=== PATIENT | female | born 1980 | race Caucasian/White ===

== ENCOUNTER 2025-01-11 19:40 | Observation (INO) | payer BC ==
[2025-01-11] MEDS: ASPIRIN 81 MG PO STA (20:14)
[2025-01-11] MEDS: LORazepam 2 MG/ML INJ IV STA (20:14)
[2025-01-11] MEDS: NITROGLYCERIN OINT 1 INCH/GM PACKET TOPICAL STA (20:14)
--- NOTE | 2025-01-11 20:22 | ED ---
General Adult HPI - General Source: patient, RN notes reviewed, old records reviewed Mode of arrival: ambulatory Limitations: no limitations <Angel Fabian - Last Filed: 01/11/25 20:53> <Francisco Amezquita - Last Filed: 01/11/25 22:18> - General Chief complaint: Chest Pain Stated complaint: Hypertension, chest tightness Time Seen by Provider: 01/11/25 19:50 - History of Present Illness Initial comments: This is a 44-year-old female who presents to the emergency department stating that her blood pressure has been elevated and she is experiencing some chest tightness/heaviness that is atypical for her. Patient denies any shortness of breath or difficulty breathing. Patient denies any radiation of the pain. Denies any diaphoretic episode. Patient states she does have some anxiety and this can contribute to her fast heart rate currently. Patient denies any high cholesterol patient denies smoking patient denies any diabetes. Patient denies family history of heart disease. (Angel Fabian) - Related Data Allergies Allergy/AdvReac Type Severity Reaction Status Date / Time No Known Allergies Allergy Verified 01/11/25 19:43 Review of Systems ROS Other: All systems not noted in ROS Statement are negative. <Angel Fabian - Last Filed: 01/11/25 20:53> ROS Other: All systems not noted in ROS Statement are negative. <Francisco Amezquita - Last Filed: 01/11/25 22:18> ROS Statement: Those systems with pertinent positive or pertinent negative responses have been documented in the HPI. Past Medical History Past Medical History: Hypertension History of Any Multi-Drug Resistant Organisms: None Reported Past Surgical History: Section Past Psychological History: Anxiety Smoking Status: Never smoker Past Alcohol Use History: None Reported Past Drug Use History: None Reported <Angel Fabian - Last Filed: 01/11/25 20:53> General Exam Limitations: no limitations <Angel Fabian - Last Filed: 01/11/25 20:53> - General Exam Comments Initial Comments: GENERAL: Patient is well-developed and well-nourished. Patient is nontoxic and well- hydrated and is in mild distress. ENT: Neck is soft and supple. No significant lymphadenopathy is noted. Oropharynx is clear. Moist mucous membranes. Neck has full range of motion without eliciting any pain. EYES: The sclera were anicteric and conjunctiva were pink and moist. Extraocular movements were intact and pupils were equal round and reactive to light. Eyelids were unremarkable. PULMONARY: Unlabored respirations. Good breath sounds bilaterally. No audible rales rhonchi or wheezing was noted. CARDIOVASCULAR: There is a regular rate and rhythm without any murmurs gallops or rubs. ABDOMEN: Soft and nontender with normal bowel sounds. SKIN: Skin is clear with no lesions or rashes and otherwise unremarkable. NEUROLOGIC: Patient is alert and oriented x3. Cranial nerves II through XII are grossly in tact. Motor and sensory are also intact. Normal speech, volume and content. Symmetrical smile. MUSCULOSKELETAL: Normal extremities with adequate strength and full range of motion. LYMPHATICS: No significant lymphadenopathy is noted PSYCHIATRIC: Normal psychiatric evaluation. (Angel Fabian) Course Vital Signs 01/11/25 01/11/25 01/11/25 19:41 19:57 21:39 Temperature 97.7 F Pulse Rate 117 H 107 H 98 Respiratory 20 17 18 Rate Blood Pressure 196/118 168/98 147/86 O2 Sat by Pulse 99 100 98 Oximetry Medical Decision Making - Lab Data Result diagrams: 01/11/25 20:00 01/11/25 20:00 <Angel Fabian - Last Filed: 01/11/25 20:53> - Lab Data Result diagrams: 01/11/25 20:00 01/11/25 20:00 <Francisco Amezquita - Last Filed: 01/11/25 22:18> - Medical Decision Making EKG is interpreted by myself. EKG shows sinus tachycardia at 160 bpm [place] was 159 QRS is 80 QT interval is 290 QTc is 352. Patient has ST segment depression in precordial leads and inferior leads. Was pt. sent in by a medical professional or institution (, PA, WRAPPING MACHINE TENDER, urgent care, hospital, or assisted...) When possible be specific @ -[No] Did you speak to anyone other than the patient for history (EMS, parent, family, police, friend...)? What history was obtained from this source @ -[No] Did you review nursing and triage notes (agree or disagree)? Why? @ -[I reviewed and agree with nursing and triage notes] Were old charts reviewed (outside hosp., previous admission, EMS record, old EKG, old radiological studies, urgent care reports/EKG's, assisted records)? Report findings @ -[No old charts were reviewed] Differential Diagnosis? @ -Differential Chest Pain: Stable Angina, Unstable Angina, STEMI, NSTEMI Aortic Dissection, Pneumothorax, Musculoskeletal, Esophageal Spasm GERD, Cholecystitis, Pancreatitis, Zoster, this is not meant to be an all-inclusive list. EKG interpreted by me (3pts min.). @ -[As above] X-rays interpreted by me (1pt min.). @ -[None done] CT interpreted by me (1pt min.). @ -[None done] U/S interpreted by me (1pt. min.). @ -[None done] What testing was considered but not performed or refused? (CT, X-rays, U/S, labs)? Why? @ -[None] What meds were considered but not given or refused? Why? @ -[None] Did you discuss the management of the patient with other professionals (professionals i.e. , PA, WRAPPING MACHINE TENDER, lab, RT, psych nurse, social media marketer, veterans' counselor, teacher, chairman and chief executive officer, caseworker intake)? Give summary @ -[No] Was smoking cessation discussed for >3mins.? @ -[No] Was critical care preformed (if so, how long)? @ -[No] Were there social determinants of health that impacted care today? How? (Homelessness, low income, unemployed, alcoholism, drug addiction, transportation, low edu. Level, literacy, decrease access to med. care, fpc, rehab)? @ -[No] Was there de-escalation of care discussed even if they declined (Discuss DNR or withdrawal of care, Hospice)? DNR status @ -[No] What co-morbidities impacted this encounter? (DM, HTN, Smoking, COPD, CAD, Cancer, CVA, ARF, Chemo, Hep., AIDS, mental health diagnosis, sleep apnea, morbid obesity)? @ -[None] Was patient admitted / discharged? Hospital course, mention meds given and route, prescriptions, significant lab abnormalities, going to OR and other pertinent info. @ -Dr. Amezquita with taking over the care of this patient at 9 PM (Angel Fabian) CT angiography negative for pulmonary embolism. This was ordered secondary to minimally elevated D-dimer. Patient care was signed out at shift change awaiting this test. Patient's potassium is replaced in the emergency department she is placed in observation for serial cardiac enzymes telemetry, cardiology consultation. Case discussed with Dr. Al ([facility],Francisco Wilson) - Lab Data Lab Results 01/11/25 01/11/25 01/11/25 Range/Units 20:00 20:00 20:00 WBC 12.9 H (3.8-10.6) k/uL RBC 4.65 (3.80-5.40) m/uL Hgb 13.6 (11.4-16.0) gm/dL Hct 41.1 (34.0-46.0) % MCV 88.4 (80.0-100.0) fL MCH 29.3 (25.0-35.0) pg MCHC 33.1 (31.0-37.0) g/dL RDW 13.6 (11.5-15.5) % Plt Count 366 (150-450) k/uL MPV 7.8 Neutrophils % 87 % Lymphocytes % 9 % Monocytes % 3 % Eosinophils % 0 % Basophils % 0 % Neutrophils # 11.2 H (1.3-7.7) k/uL Lymphocytes # 1.2 (1.0-4.8) k/uL Monocytes # 0.4 (0-1.0) k/uL Eosinophils # 0.0 (0-0.7) k/uL Basophils # 0.0 (0-0.2) k/uL PT 10.7 (10.0-12.5) sec INR 1.0 (<1.2) APTT 23.4 (22.0-30.0) sec D-Dimer 0.69 H (<0.60) mg/L FEU Sodium 134 L (137-145) mmol/L Potassium 3.0 L (3.5-5.1) mmol/L Chloride 96 L (98-107) mmol/L Carbon Dioxide 25 (22-30) mmol/L Anion Gap 13 mmol/L BUN 10 (7-17) mg/dL Creatinine 0.66 (0.52-1.04) mg/dL Est GFR (CKD-EPI)AfAm >90 (>60 ml/min/1.73 sqM) Est GFR (CKD-EPI)NonAf >90 (>60 ml/min/1.73 sqM) Glucose 146 H (74-99) mg/dL Calcium 9.8 (8.4-10.2) mg/dL Magnesium 1.8 (1.6-2.3) mg/dL Total Bilirubin 0.6 (0.2-1.3) mg/dL AST 19 (14-36) U/L ALT 24 (4-34) U/L Alkaline Phosphatase 96 (38-126) U/L Troponin I (0.000-0.034) ng/mL Total Protein 7.5 (6.3-8.2) g/dL Albumin 4.6 (3.5-5.0) g/dL /02/01 Range/Units 20:00 WBC (3.8-10.6) k/uL RBC (3.80-5.40) m/uL Hgb (11.4-16.0) gm/dL Hct (34.0-46.0) % MCV (80.0-100.0) fL MCH (25.0-35.0) pg MCHC (31.0-37.0) g/dL RDW (11.5-15.5) % Plt Count (150-450) k/uL MPV Neutrophils % % Lymphocytes % % Monocytes % % Eosinophils % % Basophils % % Neutrophils # (1.3-7.7) k/uL Lymphocytes # (1.0-4.8) k/uL Monocytes # (0-1.0) k/uL Eosinophils # (0-0.7) k/uL Basophils # (0-0.2) k/uL PT (10.0-12.5) sec INR (<1.2) APTT (22.0-30.0) sec D-Dimer (<0.60) mg/L FEU Sodium (137-145) mmol/L Potassium (3.5-5.1) mmol/L Chloride (98-107) mmol/L Carbon Dioxide (22-30) mmol/L Anion Gap mmol/L BUN (7-17) mg/dL Creatinine (0.52-1.04) mg/dL Est GFR (CKD-EPI)AfAm (>60 ml/min/1.73 sqM) Est GFR (CKD-EPI)NonAf (>60 ml/min/1.73 sqM) Glucose (74-99) mg/dL Calcium (8.4-10.2) mg/dL Magnesium (1.6-2.3) mg/dL Total Bilirubin (0.2-1.3) mg/dL AST (14-36) U/L ALT (4-34) U/L Alkaline Phosphatase (38-126) U/L Troponin I <0.012 (0.000-0.034) ng/mL Total Protein (6.3-8.2) g/dL Albumin (3.5-5.0) g/dL Disposition <Angel Fabian - Last Filed: 01/11/25 20:53> Is patient prescribed a controlled substance at d/c from ED?: No Time of Disposition: 22:18 <Francisco Amezquita - Last Filed: 01/11/25 22:18> Clinical Impression: Chest pain Disposition: ADMITTED IP TO THIS HOSP Condition: Stable Referrals: Marco A Diaz DO [Primary Care Provider] - 1-2 days
[2025-01-11 20:42] LABS: ALT 24 U/L (4-34); AST 19 U/L (14-36); African American GFR (CKD) >90 (>60 ml/min/1.73 sqM); Albumin 4.6 g/dL (3.5-5.0); Alkaline Phosphatase 96 U/L (38-126); Anion Gap 13 mmol/L; Blood Urea Nitrogen 10 mg/dL (7-17); Calcium 9.8 mg/dL (8.4-10.2); Carbon Dioxide 25 mmol/L (22-30); Chloride 96 mmol/L (98-107); Glucose 146 mg/dL (74-99); Magnesium 1.8 mg/dL (1.6-2.3); Non-African American GFR(CKD) >90 (>60 ml/min/1.73 sqM); Sodium 134 mmol/L (137-145); Total Bilirubin 0.6 mg/dL (0.2-1.3); Total Protein 7.5 g/dL (6.3-8.2)
[2025-01-11 20:46] LABS: Basophils % (A) 0 %; Eosinophils % (A) 0 %; HCT 41.1 % (34.0-46.0); HGB 13.6 gm/dL (11.4-16.0); Lymphocytes # (A) 1.2 k/uL (1.0-4.8); Lymphocytes % (A) 9 %; MCH 29.3 pg (25.0-35.0); MCHC 33.1 g/dL (31.0-37.0); MCV 88.4 fL (80.0-100.0); Mean Platelet Volume 7.8; Monocytes # (A) 0.4 k/uL (0-1.0); Monocytes % (A) 3 %; Neutrophils # (A) 11.2 k/uL (1.3-7.7); Neutrophils % (A) 87 %; Platelet Count 366 k/uL (150-450); RBC 4.65 m/uL (3.80-5.40); RDW 13.6 % (11.5-15.5); WBC 12.9 k/uL (3.8-10.6)
[2025-01-11 20:53] LABS: Partial Thromboplastin Time 23.4 sec (22.0-30.0); Prothrombin Time 10.7 sec (10.0-12.5)
--- NOTE | 2025-01-11 21:00 | XR ---
EXAMINATION TYPE: XR chest 2V DATE OF EXAM: 01/11/2025 8:39 PM COMPARISON: None. CLINICAL INDICATION: Female, 44 years old with history of Chest Pain, TECHNIQUE: XR chest 2V view(s) obtained. FINDINGS: The heart size is normal. The pulmonary vasculature is normal. The lungs are clear. IMPRESSION: 1. No acute pulmonary process. [facility], , 01/11/2025 8:58 PM
[2025-01-11] MEDS: POTASSIUM BICARBONATE/CIT AC 20 MEQ TABLET.EFF PO ONE (21:36)
--- NOTE | 2025-01-11 21:45 | CT ---
EXAMINATION TYPE: CT chest angio for PE DATE OF EXAM: 01/11/2025 9:22 PM COMPARISON: None. CLINICAL INDICATION: Female, 44 years old with history of cp, d-dimer, Positive dimer, chest tightnes s since this morning, TECHNIQUE: CT of the chest is performed on a spiral scan at 2 mm thick sections. Study is performed with intravenous contrast timed for evaluation for pulmonary embolism. This will limit additional po rtions of the evaluation. 10mm MIP images reconstructed by the technologist are reviewed on the comp uter in the coronal and sagittal planes. Contrast used:54 cc mL of Isovue 370 with IV Contrast, (none if empty) Oral contrast used: (none if empty) CT DLP: 280 mGycm, Automated exposure control for dose reduction was used. FINDINGS: No persistent filling defects are evident to suggest an acute pulmonary embolism. No mediastinal or hilar adenopathy enlarged by CT criteria is evident. The ascending aorta diameter at the level of the main pulmonary artery is 3.4 cm. The main pulmonary artery diameter at the bifurcation is 2.2 cm. Lung windows are clear. No significant coronary artery calcifications. Limited CT sections were through the upper abdomen. Upper abdomen appears unremarkable. Small hiata l hernia may be present. IMPRESSION: 1. No acute pulmonary embolism. 2. No acute pulmonary process. [facility], , 01/11/2025 9:43 PM
[2025-01-11] MEDS ORDERED: ACETAMINOPHEN TAB 325 MG TAB PO PRN (22:16)
[2025-01-11] MEDS ORDERED: NALOXONE 0.4 MG/ML 1 ML VIAL IV PRN (22:16)
[2025-01-12 03:41] LABS: ALT 20 U/L (4-34); AST 16 U/L (14-36); African American GFR (CKD) >90 (>60 ml/min/1.73 sqM); Albumin 3.8 g/dL (3.5-5.0); Alkaline Phosphatase 74 U/L (38-126); Anion Gap 9 mmol/L; Blood Urea Nitrogen 10 mg/dL (7-17); Calcium 9.3 mg/dL (8.4-10.2); Carbon Dioxide 30 mmol/L (22-30); Chloride 96 mmol/L (98-107); Glucose 89 mg/dL (74-99); Non-African American GFR(CKD) >90 (>60 ml/min/1.73 sqM); Potassium 3.1 mmol/L (3.5-5.1); Sodium 135 mmol/L (137-145); Total Bilirubin 0.6 mg/dL (0.2-1.3); Total Protein 6.3 g/dL (6.3-8.2)
[2025-01-12] MEDS: POTASSIUM CHLORIDE ER 20 MEQ TAB.ER PO SCH (09:14)
[2025-01-12 15:45] VITALS: RESP 19; TEMP 98.7
--- NOTE | 2025-01-12 16:13 | P.CRDCN ---
History of Present Illness Consult date: 01/12/25 History of present illness: HISTORY OF PRESENTING ILLNESS: 44-year-old female with past medical history of hypertension managed on HCTZ 50 mg daily by PCP. She does not have any prior cardiovascular history, denies any family still premature coronary artery disease or sudden cardiac . Denies any history of smoking, recreational drug use marijuana use or alcohol use. She had normal with no cardiac applications of preeclampsia. She presented to the hospital because of some chest heaviness which she attributes to recent increase stress in her life. On admission she was also noticed to be hypertensive Her labs showed sodium 134, potassium 3, troponins were negative x 3. Her chest x-ray did not show any signs of congestion consolidation CTA chest did not show any evidence of pulm embolism or any acute lung pathology. Did not show significant coronary calcification EKG showed sinus tachycardia heart rate [address] changes in ferolateral leads. REVIEW OF SYSTEMS: 14 point review of system is negative except what is mentioned above in HPI. PHYSICAL EXAMINATION: Neck: Brisk carotid upstroke, no jugular venous distention. Lungs: Clear to auscultation. Heart: Regular rate and rhythm, S1-S2, , no murmur or rub. Abdomen: Soft nontender, positive bowel sounds. Extremities: No edema, intact distal pulses. Neuro: Alert, oritented, no focal deficits. Detailed neuro exam was not performed. ASSESSMENT: # Atypical chest pain. Rule out of ACS # Essential hypertension, poorly controlled # Hyponatremia # Hypokalemia PLAN: Reduce HCTZ from 50 mg to 25 mg Add losartan 25 mg daily Monitor blood pressure Patient is very eager to go home at this time. She is a low to intermediate pretest probability for coronary artery disease with low heart score. I have recommended her to follow-up on outpatient basis with me. We would like to perform an echocardiogram and a treadmill based stress test. Also monitor to monitor her blood pressure and maintain a blood pressure log and show to me in the office. DASH diet recommendations were given Obtain A1c and lipid panel and TSH levels Cleared to be discharged from cardiac standpoint Jermaine Weber MD, FACC, RPVI Thank you for allowing [facility] to participate in this patient's care. Feel free to reach out in case of any followup questions. Past Medical History Past Medical History: Hypertension History of Any Multi-Drug Resistant Organisms: None Reported Past Surgical History: Section Past Psychological History: Anxiety Smoking Status: Never smoker Past Alcohol Use History: None Reported Past Drug Use History: None Reported Medications and Allergies Home Medications Medication Instructions Recorded Confirmed Type Cetirizine HCl [Zyrtec] 10 mg PO DAILY 01/12/25 01/12/25 History hydroCHLOROthiazide [Hydrodiuril] 50 mg PO DAILY 01/12/25 01/12/25 History Allergies Allergy/AdvReac Type Severity Reaction Status Date / Time avocado Allergy Anaphylaxis Verified 01/12/25 15:41 salvador Allergy Anaphylaxis Verified 01/12/25 15:41 tree nut Allergy Anaphylaxis Verified 01/12/25 15:41 Physical Exam Vitals: Vital Signs Temp Pulse Pulse Resp BP BP BP 01/12/25 15:44 98.7 F 112 H 19 176/99 171/97 01/12/25 15:17 98.5 F 103 H 16 144/89 01/12/25 13:19 98.2 F 93 18 134/81 01/12/25 08:35 98.0 F 87 14 131/83 01/12/25 05:19 98.0 F 90 16 129/79 01/12/25 00:03 98.3 F 90 16 134/87 01/11/25 23:04 86 18 122/78 01/11/25 21:39 98 18 147/86 01/11/25 19:57 107 H 17 168/98 01/11/25 19:41 97.7 F 117 H 20 196/118 Pulse Ox 01/12/25 15:44 99 01/12/25 15:17 99 01/12/25 13:19 98 01/12/25 08:35 98 01/12/25 05:19 98 01/12/25 00:03 99 01/11/25 23:04 97 01/11/25 21:39 98 01/11/25 19:57 100 01/11/25 19:41 99 Results 01/11/25 20:00 01/12/25 02:34 Cardiac Enzymes 01/11/25 01/11/25 01/12/25 Range/Units 20:00 20:00 00:13 AST 19 (14-36) U/L Troponin I <0.012 <0.012 (0.000-0.034) ng/mL 01/12/25 01/12/25 Range/Units 02:34 02:34 AST 16 (14-36) U/L Troponin I <0.012 (0.000-0.034) ng/mL Coagulation 01/11/25 Range/Units 20:00 PT 10.7 (10.0-12.5) sec APTT 23.4 (22.0-30.0) sec CBC 01/11/25 Range/Units 20:00 WBC 12.9 H (3.8-10.6) k/uL RBC 4.65 (3.80-5.40) m/uL Hgb 13.6 (11.4-16.0) gm/dL Hct 41.1 (34.0-46.0) % Plt Count 366 (150-450) k/uL Comprehensive Metabolic Panel 01/11/25 01/12/25 Range/Units 20:00 02:34 Sodium 134 L 135 L (137-145) mmol/L Potassium 3.0 L 3.1 L (3.5-5.1) mmol/L Chloride 96 L 96 L (98-107) mmol/L Carbon Dioxide 25 30 (22-30) mmol/L BUN 10 10 (7-17) mg/dL Creatinine 0.66 0.64 (0.52-1.04) mg/dL Glucose 146 H 89 (74-99) mg/dL Calcium 9.8 9.3 (8.4-10.2) mg/dL AST 19 16 (14-36) U/L ALT 24 20 (4-34) U/L Alkaline Phosphatase 96 74 (38-126) U/L Total Protein 7.5 6.3 (6.3-8.2) g/dL Albumin 4.6 3.8 (3.5-5.0) g/dL Current Medications Generic Name Dose Route Start Last Admin Trade Name Freq PRN Reason Stop Dose Admin Acetaminophen 650 mg 01/11/25 22:16 Acetaminophen Tab 325 Mg Tab PO Q6HR PRN Mild Pain or Fever > 100.5 Hydrochlorothiazide 25 mg 01/12/25 16:00 Hydrochlorothiazide 25 Mg Tab PO DAILY [facility] Losartan Potassium 25 mg 01/12/25 16:00 Losartan 25 Mg Tab PO DAILY ADRI Naloxone HCl 0.2 mg 01/11/25 22:16 Naloxone 0.4 Mg/Ml 1 Ml Vial IV Q2M PRN Opioid Reversal Potassium Chloride 20 meq 01/12/25 09:00 01/12/25 09:14 Potassium Chloride Er 20 Meq Tab.Er PO 20 meq BID ADRI Administration 01/11/25 20:00 01/12/25 02:34
[2025-01-12] MEDS: LOSARTAN 25 MG TAB PO SCH (16:34)
[2025-01-12] MEDS: hydroCHLOROthiazide 25 MG TAB PO SCH (16:35)
[2025-01-12 17:58] VITALS: BP 162/96; PULSE 105
--- NOTE | 2025-01-12 21:32 | HP ---
HISTORY AND PHYSICAL This is a combined history and physical and discharge summary. CHIEF COMPLAINT: Chest pain. 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 The patient reported some chest discomfort, which is felt in the anterior part and there is no shortness of breath. There is no radiation of the pain. The patient came to [facility] and was found to have hypokalemia, and the D-dimer was 0.69. The CTA was negative. Chest x-ray was normal. The EKG showed some ST-T changes. Cardiology saw the patient and recommended the patient to be followed up in the outpatient setting at this time. There is no history of any fever, rigors, or chills. PAST MEDICAL HISTORY: History of hypertension, history of anxiety. Rest of history and chart is also reviewed. HOME MEDICATIONS: Reviewed and include HydroDIURIL. Dose and rest medication reviewed. ALLERGIES: Avocado. FAMILY HISTORY: No history of heart disease or strokes in the family. SOCIAL HISTORY: No history of smoking or alcohol. REVIEW OF SYSTEMS: Fourteen-point review of systems is negative except as mentioned earlier. PHYSICAL EXAMINATION: VITAL SIGNS: Pulse is 112, Blood pressure 176/90, respirations 19. HEENT: Conjunctivae normal. NECK: No JVD. CARDIOVASCULAR: S1, S2. RESPIRATIONS: Breath sounds diminished at the bases. A few scattered rhonchi. ABDOMEN: Soft, nontender. LEGS: No edema. NERVOUS SYSTEM: Nonfocal. LABORATORY DATA: Potassium 3.6. Sodium 135. ASSESSMENT: 1. Chest pain, myocardial infarction. Rule out coronary artery disease. 2. Hyponatremia. 3. Hypokalemia. 4. Elevated WBC. 5. History of anxiety. 6. History of hypertension. RECOMMENDATIONS: This 44-year-old woman presented with multiple complex medical issues. At this time, she is keen on going home. Cardiology has seen the patient and they recommended outpatient stress test. Cardiology has adjusted the medications, and I would recommend outpatient stress test. See orders for further details. The patient is stable, keen on going home. Recommended close followup with Dr. Marco A Diaz and Cardiology in the outpatient setting. Further recommendations to follow. MMODL / IJN: [id number] / [id number]
[2025-01-13 09:36] LABS: Chol/HDL Ratio 3.48 Ratio; LDL Cholesterol,Calculated 119.8 mg/dL (0.0-131.0); VLDL Calculation 9.24 mg/dL (5.00-40.00)
== END 2025-01-12 18:35 | disposition home or self-care (01) ==
LOC: EC 19:40 → 6NMEDSUR 22:16
PROVIDERS: ADMIT Internal Medicine; ATTEND Internal Medicine
DX: I21.9 Acute myocardial infarction, unspecified (principal); E87.1 Hypo-osmolality and hyponatremia; E87.6 Hypokalemia; I10 Essential (primary) hypertension; R79.89 Other specified abnormal findings of blood chemistry; D72.829 Elevated white blood cell count, unspecified; F43.9 Reaction to severe stress, unspecified; F41.9 Anxiety disorder, unspecified; Z79.899 Other long term (current) drug therapy; Z91.018 Allergy to other foods
CPT/HCPCS: 96374; 99285; 36415; 93005; 85379; 80061; 80053 ×2; 84443; 83735; 84484 ×2; 85025; 85610; 85730; 83036; 71046; 71275; G0378 ×2; J2060; Q9967

== ENCOUNTER → 2025-01-16 | Outpatient (CLI) | payer BC ==
[2025-01-16 18:10] LABS: HCT 40.4 % (37.2-46.3); HGB 13.5 g/dL (12.0-15.0); MCH 29.5 pg (27.0-32.0); MCHC 33.4 g/dL (32.0-37.0); MCV 88.2 FL (80.0-97.0); NRBC Per 100 WBC 0 X 10*3/uL (0.00-0.01); Platelet Count 414 X 10*3/uL (140-440); RBC 4.58 X 10*6/uL (4.10-5.20); RDW 13.2 % (11.5-14.5); WBC 8.73 X 10*3/uL (4.50-10.00)
[2025-01-16 18:11] LABS: Basophils # (A) 0.06 X 10*3/uL (0.00-0.10); Basophils % (A) 0.7 %; Eosinophils # (A) 0.25 X 10*3/uL (0.04-0.35); Eosinophils % (A) 2.9 %; Lymphocytes # (A) 2.68 X 10*3/uL (0.90-5.00); Lymphocytes % (A) 30.7 %; Monocytes # (A) 0.93 X 10*3/uL (0.20-1.00); Monocytes % (A) 10.7 %; Neutrophils # (A) 4.78 X 10*3/uL (1.80-7.70); Neutrophils % (A) 54.7 %
[2025-01-16 18:21] LABS: BUN/Creat Ratio 12.57 Ratio (12.00-20.00); Blood Urea Nitrogen 8.8 mg/dL (9.0-27.0); Calcium 9.4 mg/dL (8.7-10.3); Carbon Dioxide 27.8 mmol/L (21.6-31.8); Chloride 97 mmol/L (96-109); Glucose 102 mg/dL (70-110); Potassium 3.7 mmol/L (3.5-5.5); Sodium 137 mmol/L (135-145)
== END | disposition home or self-care (01) ==
LOC: LABWHC1 16:00
PROVIDERS: ATTEND Hospitalist
DX: D64.9 Anemia, unspecified (principal)
CPT/HCPCS: 36415; 80048; 85025

== ENCOUNTER 2025-02-11 00:19 | Emergency (ER) | payer BC ==
[2025-02-11 00:25] VITALS: TEMP 98.3
--- NOTE | 2025-02-11 00:40 | ED ---
Chest Pain HPI - General Chief Complaint: Chest Pain Stated Complaint: high blood pressure, chest pain Time Seen by Provider: 02/11/25 00:31 Source: patient, RN notes reviewed, old records reviewed Mode of arrival: ambulatory Limitations: no limitations - History of Present Illness Initial Comments: This is a 44 female female presents today for palpitations elevated heart rate underlying tachycardia recent medication changes elevated blood pressure. Patient has been managing her blood pressure with new medications in the hospital about a month ago with low magnesium low potassium put on supplementation. Patient did stop supplementation recently this week and began to fell that she was having increasing palpitations and tachycardia here in the ER, the symptoms began earlier in the day and then persisted throughout the night while she was sleeping. Prompting her return to the ER. She does feel palpitations here in the ER with chest pain MD Complaint: chest pain, other (Patient's and tachycardia) -: hour(s) Onset: during rest, during exertion, awoke with symptoms Pain Location: substernal, left chest Pain Radiation: none Severity: moderate Severity scale (1-10): 5 Quality: tightness Consistency: intermittent Improves With: nothing Worsens With: nothing Other Symptoms: palpitations Treatments Prior to Arrival: none - Related Data Home Medications Medication Instructions Recorded Confirmed Cetirizine HCl [Zyrtec] 10 mg PO DAILY 01/12/25 01/12/25 Previous Rx's Medication Instructions Recorded Losartan [Cozaar] 25 mg PO DAILY #30 tab 01/12/25 Potassium Chloride ER [K-Dur 20] 20 meq PO DAILY #30 tab 01/12/25 hydroCHLOROthiazide [Hydrodiuril] 25 mg PO DAILY #30 tab 01/12/25 amLODIPine [Norvasc] 5 mg PO DAILY #30 tab 02/11/25 Allergies Allergy/AdvReac Type Severity Reaction Status Date / Time avocado Allergy Anaphylaxis Verified 01/12/25 15:41 salvador Allergy Anaphylaxis Verified 01/12/25 15:41 tree nut Allergy Anaphylaxis Verified 01/12/25 15:41 Review of Systems ROS Statement: Those systems with pertinent positive or pertinent negative responses have been documented in the HPI. ROS Other: All systems not noted in ROS Statement are negative. EKG Findings - EKG Comments: EKG Findings:: EKG sinus 95 IL 145 QRS 76 QTc 409 - EKG Results: EKG: interpreted by VICENTE Past Medical History Past Medical History: Hypertension History of Any Multi-Drug Resistant Organisms: None Reported Past Surgical History: Section Past Psychological History: Anxiety Smoking Status: Never smoker Past Alcohol Use History: None Reported Past Drug Use History: None Reported General Exam Limitations: no limitations General appearance: alert, in no apparent distress, anxious Head exam: Present: atraumatic, normocephalic, normal inspection Eye exam: Present: normal appearance, PERRL, EOMI. Absent: scleral icterus, conjunctival injection, periorbital swelling ENT exam: Present: normal exam, mucous membranes moist Neck exam: Present: normal inspection. Absent: tenderness, meningismus, lymphadenopathy Respiratory exam: Present: normal lung sounds bilaterally. Absent: respiratory distress, wheezes, rales, rhonchi, stridor Cardiovascular Exam: Present: normal rhythm, tachycardia, normal heart sounds. Absent: systolic murmur, diastolic murmur, rubs, gallop, clicks GI/Abdominal exam: Present: soft, normal bowel sounds. Absent: distended, tenderness, guarding, rebound, rigid Extremities exam: Present: normal inspection, full ROM, normal capillary refill. Absent: tenderness, pedal edema, joint swelling, calf tenderness Back exam: Present: normal inspection Neurological exam: Present: alert, oriented X3, CN II-XII intact Psychiatric exam: Present: normal affect, normal mood Skin exam: Present: warm, dry, intact, normal color. Absent: rash Course Vital Signs 02/11/25 02/11/25 02/11/25 00:23 00:58 01:48 Temperature 98.3 F Pulse Rate 110 H 86 98 Respiratory 18 16 16 Rate Blood Pressure 178/111 168/101 152/99 O2 Sat by Pulse 100 99 98 Oximetry 02/11/25 02:19 Temperature Pulse Rate 90 Respiratory 16 Rate Blood Pressure 149/91 O2 Sat by Pulse 99 Oximetry - Reevaluation(s) Reevaluation #1: 02/11/25 01:50 Medical records reviewed Reevaluation #2: 02/11/25 01:50 Symptoms do appear improved Reevaluation #3: 02/11/25 01:50 Informed of results questions answered Reevaluation #4: Was pt. sent in by a medical professional or institution (, PA, MOLD BREAKER, urgent care, hospital, or detention...) When possible be specific @ -no Did you speak to anyone other than the patient for history (EMS, parent, family, police, friend...)? What history was obtained from this source @ -no Did you review nursing and triage notes (agree or disagree)? Why? @ -agree Are old charts reviewed (outside hosp., previous admission, EMS record, old EKG, old radiological studies, urgent care reports/EKG's, detention records)? Report findings @ -yes Differential Diagnosis (chest pain, altered mental status, abdominal pain women, abdominal pain men, vaginal bleeding, weakness, fever, dyspnea, syncope, headache, dizziness, GI bleed, back pain, seizure, CVA, palpatations, mental health, musculoskeletal)? @ -prior EKG interpreted by me (3pts min.). @ -yes X-rays interpreted by me (1pt min.). @ -yes negative for acute disease CT interpreted by me (1pt min.). @ -no U/S interpreted by me (1pt. min.). @ -no What testing was considered but not performed or refused? (CT, X-rays, U/S, labs)? Why? @ -none What meds were considered but not given or refused? Why? @ -none Did you discuss the management of the patient with other professionals (professionals i.e. , PA, MOLD BREAKER, lab, RT, psych nurse, social services specialist, street car mechanic, teacher, media liaison officer, high risk case manager)? Give summary @ -no Was smoking cessation discussed for >3mins.? @ -no Was critical care preformed (if so, how long)? @ -no Were there social determinants of health that impacted care today? How? (Homelessness, low income, unemployed, alcoholism, drug addiction, transportat ion, low edu. Level, literacy, decrease access to med. care, long-term, rehab)? @ -none Was there de-escalation of care discussed even if they declined (Discuss DNR or withdrawal of care, Hospice)? DNR status @ -no What co-morbidities impacted this encounter? (DM, HTN, Smoking, COPD, CAD, Cancer, CVA, ARF, Chemo, Hep., AIDS, mental health diagnosis, sleep apnea, morbid obesity)? @ -none Was patient admitted / discharged? Hospital course, mention meds given and route, prescriptions, significant lab abnormalities, going to OR and other pertinent info. @ - Undiagnosed new problem with uncertain prognosis? @ -no Drug Therapy requiring intensive monitoring for toxicity (Heparin, Nitro, Insulin, Cardizem)? @ -no Were any procedures done? @ -no Diagnosis/symptom? @ - Acute, or Chronic, or Acute on Chronic? @ -Acute Uncomplicated (without systemic symptoms) or Complicated (systemic symptoms)? @ -Complicated Side effects of treatment? @ -no Exacerbation, Progression, or Severe Exacerbation? @ -exacerbation Poses a threat to life or bodily function? How? (Chest pain, USA, MS, pneumonia, PE, COPD, DKA, ARF, appy, cholecystitis, CVA, Diverticulitis, Homicidal, Suicidal, threat to staff... and all critical care pts) @ -yes Reevaluation #5: Differential Palpitations Ventricular arrhythmias, atrial arrhythmias, myocardial infarction, anemia, thyrotoxicosis, electrolyte imbalance, hypokalemia, pulmonary embolism, pulmonary disease, drugs, alcohol, anxiety, stress.... This is not meant to be an all-inclusive list. Chest Pain MDM - MDM 44 female to ER with palpitations low magnesium low potassium is replaced here in the ER patient continue outpatient follow-up with primary care and cardiology Disposition Clinical Impression: Chest pain, Palpitations, Tachycardia, Hypomagnesemia, Hypokalemia Disposition: HOME SELF-CARE Condition: Good Instructions (If sedation given, give patient instructions): Hypokalemia (ED), Hypomagnesemia (ED), Tachycardia (ED) Prescriptions: amLODIPine [Norvasc] 5 mg PO DAILY #30 tab Is patient prescribed a controlled substance at d/c from ED?: No Referrals: Marco A Diaz DO [Primary Care Provider] - 1-2 days
[2025-02-11 00:48] LABS: Basophils # (A) 0.03 10*3/uL (0.00-0.10); Basophils % (A) 0.3 %; Eosinophils # (A) 0.15 10*3/uL (0.04-0.35); Eosinophils % (A) 1.3 %; HCT 39.1 % (37.2-46.3); HGB 13.7 g/dL (12.0-15.0); Lymphocytes # (A) 2.01 10*3/uL (0.90-5.00); Lymphocytes % (A) 16.9 %; MCH 30.2 pg (27.0-32.0); MCV 86.1 fL (80.0-97.0); Mean Platelet Volume 9.3 fL (9.5-12.2); Monocytes # (A) 0.91 10*3/uL (0.20-1.00); Monocytes % (A) 7.6 %; Neutrophils # (A) 8.79 10*3/uL (1.80-7.70); Neutrophils % (A) 73.6 %; Platelet Count 376 10*3/uL (140-440); RBC 4.54 10*6/uL (4.10-5.20); WBC 11.92 10*3/uL (4.50-10.00)
[2025-02-11 00:59] VITALS: RESP 16
[2025-02-11 01:04] LABS: ALT 29 U/L (4-34); AST 25 U/L (14-36); African American GFR (CKD) >90 (>60 ml/min/1.73 sqM); Albumin 4.3 g/dL (3.5-5.0); Alkaline Phosphatase 85 U/L (38-126); Anion Gap 13 mmol/L; Blood Urea Nitrogen 12 mg/dL (7-17); Calcium 9.5 mg/dL (8.4-10.2); Carbon Dioxide 24 mmol/L (22-30); Chloride 99 mmol/L (98-107); Glucose 110 mg/dL (74-99); INR 0.9 (<1.2); Lipase 123 U/L (23-300); Magnesium 1.5 mg/dL (1.6-2.3); Non-African American GFR(CKD) >90 (>60 ml/min/1.73 sqM); Potassium 3.3 mmol/L (3.5-5.1); Prothrombin Time 10.6 sec (10.0-12.5); Sodium 136 mmol/L (137-145); Total Bilirubin 0.7 mg/dL (0.2-1.3); Total Protein 7.3 g/dL (6.3-8.2)
[2025-02-11 01:13] LABS: NT-Pro-B-Type Natriuretic Pept 40 pg/mL
[2025-02-11] MEDS: MAGNESIUM OXIDE 400 MG TAB PO STA ×2 (01:29)
[2025-02-11] MEDS: POTASSIUM BICARBONATE/CIT AC 20 MEQ TABLET.EFF PO ONE (01:29)
[2025-02-11] MEDS: MAGNESIUM SULFATE-D5W PMX 1 GM in DEXTROSE/WATER 1 100ML.BAG IVPB ONE (01:30)
[2025-02-11] MEDS: POTASSIUM CHLORIDE ER 20 MEQ TAB.ER PO STA (01:32)
--- NOTE | 2025-02-11 02:18 | XR ---
EXAM: XR Chest, 2 Views CLINICAL HISTORY: ITS.REASON XR Reason: Chest Pain TECHNIQUE: Frontal and lateral views of the chest. COMPARISON: No relevant prior studies available. FINDINGS: Lungs: No consolidation or mass. Pleural space: No effusion. Heart: No cardiomegaly. Bones/joints: No acute findings. IMPRESSION: No acute cardiopulmonary process.
[2025-02-11 02:20] VITALS: BP 149/91; PULSE 90
[2025-02-11] MEDS: LABETALOL 5 MG/ML VIAL MDV IVP STA (02:24)
[2025-02-11] MEDS: amLODIPine 5 MG TAB PO STA (02:33)
== END 2025-02-11 02:38 | disposition home or self-care (01) ==
LOC: EC 00:19
DX: E87.6 Hypokalemia (principal); E83.42 Hypomagnesemia; R00.0 Tachycardia, unspecified; R00.2 Palpitations; R07.9 Chest pain, unspecified; Z91.018 Allergy to other foods
CPT/HCPCS: 36415; 93005; 85379; 83880; 80053; 83690; 83735; 84484; 85025; 85610; 85730; 71046; 99285; 96365; J3475

== ENCOUNTER → 2025-03-22 | Outpatient (CLI) | payer BC ==
[2025-03-22 15:03] LABS: Basophils # (A) 0.03 X 10*3/uL (0.00-0.10); Basophils % (A) 0.5 %; Eosinophils # (A) 0.16 X 10*3/uL (0.04-0.35); Eosinophils % (A) 2.8 %; HCT 38.1 % (37.2-46.3); HGB 12.2 g/dL (12.0-15.0); Lymphocytes # (A) 1.62 X 10*3/uL (0.90-5.00); Lymphocytes % (A) 28.1 %; MCH 29.3 pg (27.0-32.0); MCV 91.4 FL (80.0-97.0); Mean Platelet Volume 10.1 FL (9.5-12.2); Monocytes # (A) 0.57 X 10*3/uL (0.20-1.00); Monocytes % (A) 9.9 %; NRBC Per 100 WBC 0 X 10*3/uL (0.00-0.01); Neutrophils # (A) 3.37 X 10*3/uL (1.80-7.70); Neutrophils % (A) 58.5 %; Platelet Count 390 X 10*3/uL (140-440); RBC 4.17 X 10*6/uL (4.10-5.20); RDW 13.2 % (11.5-14.5); WBC 5.76 X 10*3/uL (4.50-10.00)
[2025-03-22 15:28] LABS: Erythrocyte Sedimentation Rate 7 mm/Hr (0-20)
[2025-03-22 16:50] LABS: % Iron Saturation 21.67 (12.00-45.00); C Reactive Protein <0.30 mg/dL (0.00-0.80); Creatine Kinase 109 U/L (26-186); Iron 78 UG/DL (50-170); Magnesium 1.9 mg/dL (1.5-2.4); Total Iron Binding Capacity 360 UG/DL (228-460)
[2025-03-22 16:51] LABS: Ferritin 19.3 ng/mL (10.0-291.0); Rheumatoid Factor, Qnt <15 IU/mL (0-15); T4, Free (Free Thyroxine) 1.27 ng/dL (0.80-1.80)
[2025-03-22 18:08] LABS: Anti-Smith Ab Interp Negative (Negative); Cardiolipin Ab IgG Interp Negative (Negative); Cardiolipin Ab IgM Interp Positive (Negative); Cardiolipin IgA Antibody 4.7 U/mL; Cardiolipin IgM Antibody 40.8 U/mL; JO-1 IgG Antibody <0.2 AI
[2025-03-23 16:13] LABS: HLA B27 NEGATIVE
[2025-03-25 00:35] LABS: Myoglobin 39 ng/mL (<=58)
[2025-03-25 11:33] LABS: Aldolase 2.3 U/L (1.2-7.6)
== END | disposition home or self-care (01) ==
LOC: LABWHC1 07:32
PROVIDERS: ATTEND Family Medicine
DX: M25.50 Pain in unspecified joint (principal)
CPT/HCPCS: 36415; 82085; 82550; 82607; 82671; 82728; 82746; 83540; 83550; 83735; 83874; 84144; 84146; 84403; 84425; 84439; 84443; 85025; 85652; 86038; 86039; 86140; 86147; 86160; 86235; 86431; 86812

== ENCOUNTER 2025-04-29 21:29 | Emergency (ER) | payer BC ==
--- NOTE | 2025-04-29 21:44 | ED ---
General Adult HPI - General Chief complaint: Chest Pain Stated complaint: Chest pressure Time Seen by Provider: 04/29/25 21:41 Source: patient Mode of arrival: ambulatory Limitations: no limitations - History of Present Illness Initial comments: 44-year-old female with history of hypertension, hypokalemia here for chest pressure. Patient reported that she was watching TV tonight when she started to have chest tightness that was sharp and aching with no radiation that was intermittent and would last for a few minutes, worse with exertion. She repor reese associated palpitations and checked her blood pressure and showed that her blood pressure was in the 150 systolic and her heart rate was in the low 100s. She denied shortness of breath, cough, fever, chills, exposure to sick contacts, recent prolonged travel, extremity swelling, abdominal pain, nausea, vomiting, diarrhea, focal weakness, vision changes, speech changes. She was started on spironolactone but potassium tablets yesterday by her PCP. Prior to her medication changes, she was taking about 7000 mg daily of potassium supplements. - Related Data Home Medications Medication Instructions Recorded Confirmed Cetirizine HCl [Zyrtec] 10 mg PO DAILY 01/12/25 01/12/25 Previous Rx's Medication Instructions Recorded Losartan [Cozaar] 25 mg PO DAILY #30 tab 01/12/25 Potassium Chloride ER [K-Dur 20] 20 meq PO DAILY #30 tab 01/12/25 hydroCHLOROthiazide [Hydrodiuril] 25 mg PO DAILY #30 tab 01/12/25 amLODIPine [Norvasc] 5 mg PO DAILY #30 tab 02/11/25 Allergies Allergy/AdvReac Type Severity Reaction Status Date / Time avocado Allergy Anaphylaxis Verified 04/29/25 21:37 salvador Allergy Anaphylaxis Verified 04/29/25 21:37 tree nut Allergy Anaphylaxis Verified 04/29/25 21:37 Review of Systems ROS Statement: Those systems with pertinent positive or pertinent negative responses have been documented in the HPI. ROS Other: All systems not noted in ROS Statement are negative. Past Medical History Past Medical History: Hypertension Additional Past Medical History / Comment(s): hypokalemia History of Any Multi-Drug Resistant Organisms: None Reported Past Surgical History: Section Past Psychological History: Anxiety Smoking Status: Never smoker Past Alcohol Use History: None Reported Past Drug Use History: None Reported General Exam - General Exam Comments Initial Comments: Physical examination: Vital signs reviewed General: non toxic, no distress, appears at stated age Head: atraumatic, normocephalic, symmetric Mouth: no lip lesion, mucus membranes moist Cardiovascular: S1S2 reg, no murmur Lungs: CTA bilateral, no rhonchi, no rales, no accessory muscle use Abdominal: soft, nondistended, nontender to palpation, no guarding Ext: muscle strength 5 out of 5 in all 4 extremities grossly, no gross muscle atrophy, no contractures, positive dorsalis pedis pulse bilateral, no edema Neuro: no gross focal neuro deficits Psych: Alert and oriented x3, appropriate affect and mood Limitations: no limitations Course Vital Signs 04/29/25 21:34 Temperature 98.3 F Pulse Rate 110 H Respiratory 18 Rate Blood Pressure 149/93 O2 Sat by Pulse 98 Oximetry Medical Decision Making - Medical Decision Making Was pt. sent in by a medical professional or institution (, PA, MICROFICHE DUPLICATOR, urgent care, hospital, or senior care...) When possible be specific @ -No Did you speak to anyone other than the patient for history (EMS, parent, family, police, friend...)? What history was obtained from this source @ -No Did you review nursing and triage notes (agree or disagree)? Why? @ -I reviewed and agree with nursing and triage notes Were old charts reviewed (outside hosp., previous admission, EMS record, old EKG, old radiological studies, urgent care reports/EKG's, senior care records)? Report findings @ -No old charts were reviewed Differential Diagnosis? @ -Differential Chest Pain: Stable Angina, Unstable Angina, STEMI, NSTEMI Aortic Dissection, Pneumothorax, Musculoskeletal, Esophageal Spasm GERD, Cholecystitis, Pancreatitis, Zoster, this is not meant to be an all-inclusive list. EKG interpreted by me (3pts min.). @ -As above X-rays interpreted by me (1pt min.). @ -None done CT interpreted by me (1pt min.). @ -None done U/S interpreted by me (1pt. min.). @ -None done What testing was considered but not performed or refused? (CT, X-rays, U/S, labs)? Why? @ -None What meds were considered but not given or refused? Why? @ -None Did you discuss the management of the patient with other professionals (professionals i.e. , PA, MICROFICHE DUPLICATOR, lab, RT, psych nurse, long term care social worker, refractory tile helper, teacher, driver's license reviewing officer, manager of case)? Give summary @ -Dr. Vargas, supervising physician Was smoking cessation discussed for >3mins.? @ -No Was critical care preformed (if so, how long)? @ -No Were there social determinants of health that impacted care today? How? (Homelessness, low income, unemployed, alcoholism, drug addiction, transportation, low edu. Level, literacy, decrease access to med. care, correction, rehab)? @ -No Was there de-escalation of care discussed even if they declined (Discuss DNR or withdrawal of care, Hospice)? DNR status @ -No What co-morbidities impacted this encounter? (DM, HTN, Smoking, COPD, CAD, Cancer, CVA, ARF, Chemo, Hep., AIDS, mental health diagnosis, sleep apnea, morbid obesity)? @ -None Was patient admitted / discharged? Hospital course, mention meds given and route, prescriptions, significant lab abnormalities, going to OR and other pertinent info. @ -Discharge. Troponin and labs ordered which were all within normal limits. Patient's symptoms did not worsen throughout stay. No new symptoms or complaints occurred. She is cleared for discharge and is advised to follow-up with PCP. Undiagnosed new problem with uncertain prognosis? @ -No Drug Therapy requiring intensive monitoring for toxicity (Heparin, Nitro, Insulin, Cardizem)? @ -No Were any procedures done? @ -No Diagnosis/symptom? @ -[default] Acute, or Chronic, or Acute on Chronic? @ -Acute Uncomplicated (without systemic symptoms) or Complicated (systemic symptoms)? @ -Uncomplicated Side effects of treatment? @ -No Exacerbation, Progression, or Severe Exacerbation? @ -No Poses a threat to life or bodily function? How? (Chest pain, USA, GA, pneumonia, PE, COPD, DKA, ARF, appy, cholecystitis, CVA, Diverticulitis, Homicidal, Suicidal, threat to staff... and all critical care pts) @ -No - Lab Data Result diagrams: 04/29/25 22:06 04/29/25 22:06 Lab Results 04/29/25 04/29/25 04/29/25 Range/Units 22:06 22:06 22:06 WBC 8.90 (4.50-10.00) 10*3/uL RBC 4.06 L (4.10-5.20) 10*6/uL Hgb 12.3 (12.0-15.0) g/dL Hct 36.0 L (37.2-46.3) % MCV 88.7 (80.0-97.0) fL MCH 30.3 (27.0-32.0) pg MCHC 34.2 (32.0-37.0) g/dL Plt Count 314 (140-440) 10*3/uL MPV 9.5 (9.5-12.2) fL Immature Gran % (Auto) 0.1 % Neutrophils % 61.8 % Lymphocytes % 25.2 % Monocytes % 9.0 % Eosinophils % 3.5 % Basophils % 0.4 % Immature Gran # 0.01 (0.00-0.04) 10*3/uL Neutrophils # 5.50 (1.80-7.70) 10*3/uL Lymphocytes # 2.24 (0.90-5.00) 10*3/uL Monocytes # 0.80 (0.20-1.00) 10*3/uL Eosinophils # 0.31 (0.04-0.35) 10*3/uL Basophils # 0.04 (0.00-0.10) 10*3/uL Sodium 136 L (137-145) mmol/L Potassium 3.7 (3.5-5.1) mmol/L Chloride 102 (98-107) mmol/L Carbon Dioxide 22 (22-30) mmol/L Anion Gap 12 mmol/L BUN 15 (7-17) mg/dL Creatinine 0.71 (0.52-1.04) mg/dL Est GFR (CKD-EPI)AfAm >90 (>60 ml/min/1.73 sqM) Est GFR (CKD-EPI)NonAf >90 (>60 ml/min/1.73 sqM) Glucose 119 H (74-99) mg/dL Calcium 9.6 (8.4-10.2) mg/dL Magnesium 1.8 (1.6-2.3) mg/dL Total Bilirubin 0.4 (0.2-1.3) mg/dL AST 24 (14-36) U/L ALT 29 (4-34) U/L Alkaline Phosphatase 79 (38-126) U/L Troponin I <0.012 (0.000-0.034) ng/mL Total Protein 6.7 (6.3-8.2) g/dL Albumin 4.0 (3.5-5.0) g/dL - EKG Data EKG Comments: Sinus rhythm with a rate of 99 bpm, normal axis, NE interval 147 MS, QRS duration 78 MS, no ST-T changes, good R wave progression, QTc 390 MS Disposition Clinical Impression: Atypical chest pain Disposition: HOME SELF-CARE Condition: Good Instructions (If sedation given, give patient instructions): Chest Pain (ED) Additional Instructions: Every disease is a spectrum and a small chance still exists that a serious condition could develop, for this reason, please monitor yourself closely for new, changing or worsening symptoms, symptoms that persist beyond another 72 hours, worsening chest pain, lightheadedness, dizziness, loss of consciousness, nausea, vomiting, fever >4 days, inability to tolerate/keep down fluids or your medications, inability to follow up with outpatient providers as instructed and should you experience these symptoms or should you have any further concerns for your wellbeing please return to the ED or call 911 immediately. PLEASE call your primary care physician as soon as possible to arrange / discuss plan for followup appointment. Appointment in the next 1-3 days is strongly encouraged if possible. PLEASE let us know here before you leave if there is anything further we can do to be of any assistance. Take care and feel Better! Is patient prescribed a controlled substance at d/c from ED?: No Referrals: Marco A Diaz DO [Primary Care Provider] - 1-2 days Time of Disposition: 22:55
[2025-04-29 22:15] LABS: Basophils # (A) 0.04 10*3/uL (0.00-0.10); Basophils % (A) 0.4 %; Eosinophils # (A) 0.31 10*3/uL (0.04-0.35); Eosinophils % (A) 3.5 %; HCT 36.0 % (37.2-46.3); HGB 12.3 g/dL (12.0-15.0); Lymphocytes # (A) 2.24 10*3/uL (0.90-5.00); Lymphocytes % (A) 25.2 %; MCH 30.3 pg (27.0-32.0); MCHC 34.2 g/dL (32.0-37.0); MCV 88.7 fL (80.0-97.0); Monocytes # (A) 0.80 10*3/uL (0.20-1.00); Monocytes % (A) 9.0 %; Neutrophils # (A) 5.50 10*3/uL (1.80-7.70); Neutrophils % (A) 61.8 %; Platelet Count 314 10*3/uL (140-440); RBC 4.06 10*6/uL (4.10-5.20); RDW 12.9 % (11.5-14.5); WBC 8.90 10*3/uL (4.50-10.00)
[2025-04-29 22:25] LABS: ALT 29 U/L (4-34); AST 24 U/L (14-36); African American GFR (CKD) >90 (>60 ml/min/1.73 sqM); Albumin 4.0 g/dL (3.5-5.0); Alkaline Phosphatase 79 U/L (38-126); Anion Gap 12 mmol/L; Blood Urea Nitrogen 15 mg/dL (7-17); Calcium 9.6 mg/dL (8.4-10.2); Carbon Dioxide 22 mmol/L (22-30); Chloride 102 mmol/L (98-107); Glucose 119 mg/dL (74-99); Magnesium 1.8 mg/dL (1.6-2.3); Non-African American GFR(CKD) >90 (>60 ml/min/1.73 sqM); Potassium 3.7 mmol/L (3.5-5.1); Sodium 136 mmol/L (137-145); Total Protein 6.7 g/dL (6.3-8.2)
[2025-04-29 23:37] VITALS: BP 143/87; PULSE 92; RESP 16; TEMP 98.7
== END 2025-04-29 23:37 | disposition home or self-care (01) ==
LOC: EC 21:29
DX: R07.89 Other chest pain (principal); Z91.018 Allergy to other foods
CPT/HCPCS: 36415; 80053; 83735; 84484; 85025; 93005; 99285

== ENCOUNTER → 2025-05-10 | Outpatient (CLI) | payer BC ==
[2025-05-10 11:15] LABS: Anion Gap 9.50 mmol/L (4.00-12.00); BUN/Creat Ratio 16.00 Ratio (12.00-20.00); Blood Urea Nitrogen 14.4 mg/dL (9.0-27.0); Calcium 8.9 mg/dL (8.7-10.3); Carbon Dioxide 25.5 mmol/L (21.6-31.8); Chloride 100 mmol/L (96-109); Glucose 97 mg/dL (70-110); Magnesium 2.0 mg/dL (1.5-2.4); Potassium 4.3 mmol/L (3.5-5.5); Sodium 135 mmol/L (135-145)
== END | disposition home or self-care (01) ==
LOC: LABWHC1 08:00
PROVIDERS: ATTEND Student in an Organized Health Care Education/Training Program
DX: D72.9 Disorder of white blood cells, unspecified (principal); Z13.6 Encounter for screening for cardiovascular disorders; R79.89 Other specified abnormal findings of blood chemistry; E11.9 Type 2 diabetes mellitus without complications; I50.9 Heart failure, unspecified; E78.5 Hyperlipidemia, unspecified; E03.9 Hypothyroidism, unspecified
CPT/HCPCS: 36415; 80048; 83735